=== PATIENT | male | born 2005 | race Two or more races ===

== ENCOUNTER 2023-10-12 09:31 | Emergency (ER) | payer MEDICAID ==
[~2023-10-12] VITALS: Ht 157.5 cm; Wt 56.8 kg
[2023-10-12 09:35] VITALS: BP 128/79; PULSE 86; RESP 18; TEMP 98.4
[2023-10-12 10:19] LABS: COVID AG,FIA SOURCE NASAL SWAB
[2023-10-12 10:58] LABS: INFLUENZA TYPE A NEGATIVE FOR TYPE A (NEGATIVE); INFLUENZA TYPE B NEGATIVE FOR TYPE B (NEGATIVE); SARS-COV2 (COVID) ANTIGEN,FIA Negative (Negative)
[2023-10-12 11:28] LABS: BASOPHILS % (AUTO) 0.2 % (0.0-2.0); HEMATOCRIT 49.4 % (41-53); HEMOGLOBIN 16.6 g/dL (13.5-17.5); LYMPHOCYTES # (AUTO) 1.9 K/uL (1.0-4.8); MEAN CORPUSCULAR HEMOGLOBIN 30.8 pg (26.0-34.0); MEAN CORPUSCULAR HGB CONC 33.7 G/dL (31.0-37.0); MEAN CORPUSCULAR VOLUME 91 fL (80-100); MONOCYTES # (AUTO) 0.5 K/uL (0.1-1.0); NEUTROPHILS # (AUTO) 6.3 K/uL (1.8-7.7); NEUTROPHILS % (AUTO) 70.8 % (40.0-70.0); PLATELET COUNT (AUTO) 223 K/uL (150-450); RED BLOOD CELL COUNT(AUTO) 5.41 MIL/uL (4.50-5.90); RED CELL DISTRIBUTION WIDTH 12.7 % (11.5-14.5); WHITE BLOOD COUNT (AUTO) 8.8 K/uL (4.5-11.0)
[2023-10-12 11:41] LABS: ANION GAP 2 mmol/L (8-16); CARBON DIOXIDE 30 mmol/L (22-29); CHLORIDE 103 mmol/L (98-107); CREATININE 0.93 mg/dL (0.60-1.30); GLOMERULAR FILTR. RATE CALC > 60 mL/min (>60); GLUCOSE,RANDOM 100 mg/dL (70-110); POTASSIUM 4.1 mmol/L (3.5-5.1); SODIUM SERUM 135 mmol/L (136-145); UREA NITROGEN, BLOOD 22 mg/dL (7-18)
[2023-10-12] MEDS: KETOROLAC TROMETHAMINE 60 MG/2 ML VIAL IM ONE (11:58)
[2023-10-12] MEDS ORDERED: OXYM15SP57 NASAL (12:06)
[2023-10-12] MEDS ORDERED: DIPH25TA51 PO (12:06)
[2023-10-12] MEDS: DiphenhydrAMINE HCL 25 MG CAPSULE PO ONE (12:10)
== END 2023-10-12 12:17 | disposition home or self-care (01) ==
LOC: EMS 09:31
DX: B34.9 Viral infection, unspecified (principal); Z20.822 Contact with and (suspected) exposure to COVID-19
CPT/HCPCS: 99283; 87426; 80048; 85025; 87804; 36415; 96372; J1885